=== PATIENT | male | born 1970 | race African-American/Black ===

== ENCOUNTER 2017-04-06 05:15 | Observation (INO) ==
--- NOTE | 2017-04-06 06:09 | Emergency Department Note ---
Regina Black Hilary, am scribing for, and in the presence of, Hubert Smith MD 06: 09. Sarah Black James D, MD, personally performed the services described in this documentation, ascribed by Rebecca Tapia in my presence, and it is both accurate and complete . Arrival - Arrival Chief Complaint: Chest Pain Stated Complaint: chest pains ,sob ED Nursing Triage Note: patient c/o right sided cp and shortness of breath for 3 days but got worse this am when he got up. deies n/v. Mode of Arrival: Ambulatory Limitations: No Limitations Source: Patient, RN Notes Reviewed Time Seen by Provider: 04/06/17 06:01 - History of Present Illness HPI Narrative: Pt is a 46 y/o male presenting to the ED with c/o right sided chest pain and SOB which onset approx 2129 but got worse this AM. Pt confirms SOB, and chest pain when breathing but denies nausea, vomiting or cough. No other complaints or problems stated in the ED. Onset (ago): day(s) Allergies/Adverse Reactions: Allergies Allergy/AdvReac Type Severity Reaction Status Date / Time [place] Allergy HIVES Verified 04/06/17 05:25 levofloxacin Allergy ITCHING Verified 04/06/17 05:25 Review of System - Review of System 12 point system: reviewed and no additional remarkable complaints except as stated - Review of System Constitutional: Absent: fever Respiratory: Present: respiratory distress (SOB). Absent: cough Cardiovascular: Present: chest pain, dyspnea on exertion Gastrointestinal: Absent: nausea, vomiting Medical,Surgical,& Family Hx - Social History Smoking Status: Never smoker Frequency of Alcohol Use: None Type of Drug Use: None Exam Physical Examination: GENERAL: This is a well-nourished, well-developed in no apparent distress. VITAL SIGNS: Temperature: 97.8 Pulse: 77 Respiratory: 20 Blood Pressure: 212/ 113 O2Sat: 99 HEENT: Head is normocephalic and atraumatic. Pupils are equally round and reactive to light. Extraocular movement are intact. Oropharynx is benign with moist mucous membranes. NECK: Neck is soft and supple without tenderness. There are no masses. There is no lymphadenopathy. LUNGS: Lungs are clear to auscultation bilaterally. Chest rises symmetrically. There is minimal anterior chest wall tenderness. CV: Heart is regular rate and rhythm without murmurs, rubs, or gallops. ABDOMEN: Abdomen is soft, non-tender to palpation. There are no abnormal masses palpated. There is no organomegaly. Bowel sounds are present and active. SKIN: Skin is warm and dry. No rash. EXTREMITIES: Patient has full range of motion without tenderness. There is no pedal edema. NEUROLOGIC: Awake, alert, and oriented x4. Cranial nerves II through XII are grossly intact. There are no motorsensory deficits. PSYCHIATRIC: Normal affect. Normal mood. Vital Signs: Vital Signs Temperature 97.8 F 04/06/17 05:18 Pulse Rate 77 04/06/17 05:18 Respiratory Rate 20 04/06/17 05:32 Blood Pressure 212/113 04/06/17 05:18 O2 Sat by Pulse Oximetry 99 04/06/17 05:18 Course - Consultations Consultation #1: Discussed with hospitalist. Patient will be admitted to their service. Time: 07:13 Results - Labs CBC & BMP: 04/06/17 06:22 04/06/17 05:39 Lab Results: I have reviewed the patients labs Labs: Laboratory Tests 04/06/17 04/06/17 06:22 06:22 WBC 6.1 RBC 5.16 Hgb 14.6 Hct 44.2 MCV 85.7 L MPV 9.4 L Circ Anticoag PTT 56.3 H Laboratory Tests 04/06/17 04/06/17 05:39 05:39 Sodium 140 Potassium 3.9 Chloride 106 Carbon Dioxide 28 Total Bilirubin 1.40 H Troponin I < 0.015 - EKG EKG results: interpreted by ERMD - Impressions EKG: Normal sinus rhythm with a rate of 72, anterolateral ischemia, normal axis. Disposition Clinical Impression: Chest pain, Essential hypertension Case discussed with: patient Disposition: Still a Patient Condition: Stable
[2017-04-06] MEDS ORDERED: MORPHINE 2 MG/1 ML SYRINGE IV PRN ×2 (06:16→08:05)
[2017-04-06] MEDS ORDERED: ENOXAPARIN 100 MG/ML SYRINGE SUBCUT STA (06:16)
[2017-04-06] MEDS ORDERED: ONDANSETRON 4 MG/2 ML VIAL IV PRN ×2 (06:16→09:43)
[2017-04-06] MEDS ORDERED: ASPIRIN 325 MG TABLET PO STA (06:16)
[2017-04-06 06:26] LABS: Basophils % 0.3 % (0.0-0.8); Eosinophils # 0.3 10*3/uL (0.0-0.87); Eosinophils % 5.4 % (0.00-10.9); Hematocrit 44.2 VOL% (42.0-52.0); Hemoglobin 14.6 GM/DL (14.0-18.0); Immature Granulocytes % 0.5 %; Immature Granulocytes Absolute 0.03 #; Lymphocytes % 32.1 % (21.2-54.2); Mean Corpuscular Hemoglobin 28 PG (27-34); Mean Corpuscular Volume 85.7 FL (87-102); Mean Platelet Volume 9.4 FL (9.6-12.0); Monocytes # 0.4 10*3/uL (0.11-0.8); Monocytes % 6.4 % (1.7-12.7); Neutrophils # 3.4 10*3/uL (1.4-7.4); Neutrophils % 55.3 % (38.7-73.9); Platelet Count 268 T/CUMM (130-400); Red Blood Count 5.16 MC/CUMM (3.8-5.5); Red Cell Distribution Width 12.1 % (9.3-17.3); White Blood Count 6.1 T/CUMM (4-12)
[2017-04-06] MEDS ORDERED: ENOXAPARIN 100 MG/ML SYRINGE SUBCUT ONE (06:26)
[2017-04-06] MEDS ORDERED: ASPIRIN 325 MG TABLET ONE (06:27)
[2017-04-06] MEDS ORDERED: MORPHINE 2 MG/1 ML SYRINGE ONE (06:27)
[2017-04-06] MEDS ORDERED: ONDANSETRON 4 MG/2 ML VIAL ONE (06:27)
[2017-04-06] MEDS ORDERED: METOPROLOL TARTRATE 5 MG/5 ML VIAL IV STA (06:29)
[2017-04-06 06:37] LABS: Partial Thromboplastin Time 56.3 SECS (0-40)
--- NOTE | 2017-04-06 06:38 | EKG Report ---
Stationary ECG Study 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
[2017-04-06 06:46] LABS: Albumin 3.8 G/DL (3.4-5.0); Bilirubin,Total 1.4 MG/DL (0.2-1.0); Calcium 8.6 MG/DL (8.5-10.1); Osmolality,Calculated 277.4 MOS/KG (273-304); Potassium 3.9 MMOL/L (3.5-5.1); Total Protein 7.1 G/DL (6.4-8.3)
[2017-04-06] MEDS ORDERED: METOPROLOL TARTRATE 5 MG/5 ML VIAL IV ONE (07:00)
[2017-04-06] MEDS ORDERED: ACETAMINOPHEN 325 MG TABLET PO PRN (08:05)
[2017-04-06] MEDS ORDERED: diphenhydrAMINE CAP 25 MG CAPSULE PO PRN (08:05)
[2017-04-06] MEDS ORDERED: guaiFENesin/DM ER 600-30 MG TABLET PO PRN (08:05)
[2017-04-06] MEDS ORDERED: DOCUSATE SODIUM 100 MG CAPSULE PO PRN (08:05)
[2017-04-06] MEDS ORDERED: hydrALAZINE 20 MG/1 ML VIAL IV ONE (08:14)
--- NOTE | 2017-04-06 08:25 | Hospitalist History & Physical ---
Assessment and Plan - Time spent with patient Time spent with patient: Greater than 30 minutes (1) Chest pain Status: Acute Assessment and plan: Mr. Montoya is a very pleasant 46-year-old -[place] male with history of remote hypertension admitted by hospitalist service with chest pain, shortness of breath, malignant hypertension. Patient was given some metoprolol in the ED which brought his pulse rate down but his blood pressure is still elevated. He will receive some hydralazine in the ED and if this does not come down then he will need CCU admission on Cardizem drip. Otherwise patient can go to telemetry. Will get serial EKG and serial troponins along with a cardiology consult for possible stress test. Dr. Baxter will see and examine the patient and further recommendations to follow. Current Visit: Yes (2) Malignant hypertension Status: Acute Current Visit: Yes History of Present Illness Chief complaint: Chest pain/shortness of breath History of present illness: Mr. Montoya is a 46 year old male with history of remote hypertension presenting to the ED today with a one-day history of chest pain and shortness of breath. Patient states the chest pain started last night and he rated the pain 8/10 with accompanied shortness of breath. Patient states since coming to the ED his pain is decreased to 3/10. Patient states he did not have any nausea, vomiting, diarrhea, headache, abdominal pain, or lower extremity swelling. Patient states the pain did not radiate to the jaw or to his arm or through to the back. Patient states it feels like somebody is sitting on his chest and it is worse when he takes a deep breath. Patient has a family history of hypertension and cancer but no MIs. He does not complain of cough and he has not been exposed to anybody that has been sick recently. Patient is not a smoker or drinker. Patient states he used to take amlodipine for his blood pressure but since he switched to this new job he has not required medication. Upon exam patient is afebrile with pulse rate in the 60s but his blood pressure still running 170/120. He did receive a dose of metoprolol in the ED. His initial troponin is negative as well as remainder of his labs. His EKG is showing a ST/T-wave abnormality with possible anterolateral ischemia. After discussion with ED physician Dr. Smith and admitting hospitalist Dr. Blacklick, it was agreed patient would be admitted to telemetry for further evaluation. Allergies Allergy/AdvReac Type Severity Reaction Status Date / Time [place] Allergy HIVES Verified 04/06/17 05:25 levofloxacin Allergy ITCHING Verified 04/06/17 05:25 Medical,Surgical,& Family Hx - Medical History Cardio: History of: Hypertension Gastrointestinal: History of: GERD - Surgical History Orthopedic Surgeries: Surgical HX of;: Orthopedic Surgery - Family History Family History: Reports;: Family Cancer, Family Hypertension - Social History Smoking Status: Never smoker Frequency of Alcohol Use: None Type of Drug Use: None Marital Status: Lives With:: Spouse Functional capacity: independent ambulation Review of systems: Complete 10 system review of systems was obtained and pertinent positives and negatives per HPI Exam - Constitutional Vitals: Period Temp Pulse Resp BP Sys/Whitten Pulse Ox Last 24 Hr 97.8 F-97.8 F 77-77 20-20 212-212/113-113 99 Exam: Constitutional System: No distress. No tremulousness. Head: Normocephalic, atraumatic. Ears, Nose and Throat System: No evidence of Otitis or Mastoiditis. No epistaxis or discharge Eyes System: Pupils equal, round, and reactive. Extraocular muscles intact. Neck: Supple, without adenopathy, No jugular venous distention. No thyromegaly, neck mass, or prior surgery apparent. Respiratory System: Chest clear to auscultation. Cardiovascular System: Heart with regular rate and rhythm. No murmur. GI System: Abdomen soft, nontender. Normo active bowel sounds present. Musculoskeletal System: limbs with no pedal edema. Full distal pulses. Neurological System: No discernable sensory deficit. No aphasia Psychiatric System: Conversation is rational Results - Labs CBC & BMP: 04/06/17 06:22 04/06/17 05:39 Lab Results: I have reviewed the past 24 hour labs - EKG EKG results: sinus rhythm - Impressions ST and T-wave abnormalities with possible anterolateral ischemia
[2017-04-06] MEDS ORDERED: SODIUM CHLORIDE 0.9% 1,000 ML IV SCH (08:30)
[2017-04-06] MEDS ORDERED: hydrALAZINE 20 MG/1 ML VIAL ONE (08:43)
[2017-04-06] MEDS ORDERED: NITROGLYCERIN 2% OINT 1 INCH/GM PACK TOP STA (09:00)
--- NOTE | 2017-04-06 10:13 | EKG Report ---
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
--- NOTE | 2017-04-06 10:19 | Ultrasound Report ---
Exam: US abdomen limited Date: 04/06/2017 9:26 AM Comparison: None Indication: Right upper quadrant pain, elevated bilirubin Technique:[Multiple transabdominal real-time scans were obtained of the right upper quadrant. Color flow scans obtained. Ultrasound images were captured and stored.] Findings: No definite gallbladder pathology identified. CBD is normal in size measuring 4.7 mm. The liver and right kidney have an unremarkable appearance. The right kidney measures 103 mm in length. The pancreas and aortic bifurcation are obscured by bowel gas. The visualized aorta is normal in size with color flow documented in the IVC. Impression: No definite right upper quadrant pathology identified. The pancreas is obscured by bowel gas. PROCEDURE INTERPRETED AT [facility] DEPARTMENT OF RADIOLOGY Final Report Signed by: Dr. Felicia Chowdary
[2017-04-06] MEDS: ENOXAPARIN 40 MG/0.4 ML SYRINGE SUBCUT SCH (11:17)
[2017-04-06] MEDS: amLODIPine 10 MG TABLET PO SCH (12:06)
[2017-04-06] MEDS: PANTOPRAZOLE 40 MG TABLET PO SCH (12:06)
--- NOTE | 2017-04-06 12:50 | Cardiology Consult Note ---
<Vesta Kingsley E - Last Filed: 04/06/17 12:32> Assessment and Plan - Time spent with patient Time spent with patient: Greater than 30 minutes (1) Sleep disorder Status: Chronic Assessment and plan: See plan of care listed below Current Visit: Yes (2) Chest pain Status: Acute Assessment and plan: See plan of care listed below Current Visit: Yes (3) Malignant hypertension Status: Acute Assessment and plan: See plan of care listed below Current Visit: Yes (4) Obesity (BMI 30.0-34.9) Status: Chronic Assessment and plan: See plan of care listed below Current Visit: Yes History of Present Illness - Data of Consult Patient: new to practice Consult date: 04/06/17 Requesting Physician: Martha Baxter Primary care physician: Zoey Wells - Consult Narrative Reason for consult: chest pain, hypertensive urgency 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 WELLS Mr. Montoya, 46BM, has risk factors significant for: hypertension, obesity, unknown lipid status. He has no prior cardiac history. Mr. Montoya, presented to the emergency department [facility] this morning, after experiencing chest pain which started last evening. The chest discomfort is located in the midsternal area without radiation. This woke him from his sleep last evening as he began to feel an aching in the center of his chest. It is not associated with shortness of breath, nausea or diaphoresis. He found that taking a deep breath seemed to make this worse. He got up and walked around and then eventually went on back to sleep. When he woke this morning, he continued to have chest discomfort and for this reason he felt as if he should be evaluated in the emergency department. He rates the discomfort as an 8 on a scale of 1-10. At this point, he rates it as a 1 on a scale of 1-10. Palpating the lower external area re-creates the discomfort that the pain has improved since admission. He is normally very active and can perform these activities without chest pain, heaviness or tightness. 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 He tells me he does not have to do heavy lifting. His believes he did lift a heavy item on Thursday. Patient's blood pressure was significantly elevated on admission. He had previously been taking Norvasc 5 mg orally daily. He tells me he stopped his medication but monitor his blood pressure routinely and reports systolic blood pressures averaging 120s-130s, diastolic blood pressures averaging 80s-90. He had no adverse effects from taking his amlodipine but when he would check his blood pressure off of the medications his blood pressure was well controlled he failed. First set of cardiac biomarkers is negative. EKG reveals an ST-T wave abnormality in the setting of uncontrolled hypertension. At this point, will continue to follow his cardiac biomarkers. Echocardiogram today. Blood pressure is still significantly high and therefore stress testing is not an option until the blood pressure is better controlled. Conceivably, we can do this outpatient or we could do this during the hospital stay. Will await the results of his echo make additional recommendations accordingly. I am going to go ahead and consult Dr. Olmedo, sleep medicine. Patient snores loudly and hold his breath while sleeping. He has very small oral airway (Mallampati Airway Class III-IV.) Fasting lipid profile today. Also, I will add a d-dimer to his labs this morning. Treat his chest pain with Neurontin, tramadol and acetaminophen. Continue PPI. Reports he previously took omeprazole as needed and not routinely. Total bilirubin is mildly elevated at 1.4. ASSESSMENT/PLAN: 1. HYPERTENSION - adjust medications accordingly during hospital stay. 2. CHEST PAIN - continue to cycle his cardiac biomarkers. We will add medications for musculoskeletal chest pain. Echocardiogram. Patient may benefit from stress testing. Will discuss with Dr. Salazar timing of stress testing. Once blood pressure is better controlled we may schedule this outpatient versus inpatient stress testing. Echocardiogram will provide additional information. PPI. Amylase and lipase 3. UNKNOWN LIPID STATUS - fasting lipid profile now 4. SLEEP DISORDER -consult Dr. Olmedo for sleep disorder concerning for sleep apnea CC: Martha Baxter MD - Home Medications and Allergies Home Medications: Home Medications Medication Instructions Recorded Confirmed Type No Known Home Medications [No 04/06/17 04/06/17 History Known Home Medications] Allergies/Adverse Reactions: Allergies Allergy/AdvReac Type Severity Reaction Status Date / Time [place] Allergy HIVES Verified 04/06/17 05:25 levofloxacin Allergy ITCHING Verified 04/06/17 05:25 Review of systems: REVIEW OF SYSTEMS: - Constitutional Constitutional: Absent: syncope, anorexia, night sweats - EENT Eyes: Absent: blurry vision, loss of vision, diplopia Ears: Absent: decreased hearing, ear pain, ear discharge - Cardiovascular Cardiovascular: Present: Mild chest pain with deep breath and to palpation. Denies dyspnea on exertion, edema, palpitations. Absent: claudication - Respiratory Respiratory: Denies: WEST, denies cough. Severe snoring and holding of breath when sleeping. Absent: wheezing, hemoptysis, change in phlegm color. - Gastrointestinal Gastrointestinal: Denies: constipation. Absent: abdominal pain, hematemesis, hematochezia, melena, change in bowel habits, nausea - Genitourinary Genitourinary: Absent: difficulty urinating, dysuria, urinary hesitancy, flank pain - Musculoskeletal Musculoskeletal: Present: back pain Absent: joint swelling, muscle cramps, muscle weakness - Neurological Neurological: Present: normal gait without frequent falls. Absent: dizziness, hemiparesis - Psychiatric Psychiatric: Absent: anxiety, depression, difficulty concentrating - Endocrine Endocrine: Absent: fatigue. Absent: cold intolerance, heat intolerance, polyuria, polyphagia, polydipsia - Hematologic/Lymphatic Hematologic/Lymphatic: Present: easy bruising. Absent: easy bleeding -Integumentary Integumentary: Absent: lesions, rashes, skin breakdown Medical,Surgical,& Family Hx - Medical History Cardio: History of: Hypertension No history of: Cardiac Dysrhythmia, CAD, [place] Psychological: No history of: Depression Endocrine: No history of: Diabetes Mellitus (NIDDM), Dyslipidemia Gastrointestinal: History of: GERD - Surgical History Orthopedic Surgeries: Surgical HX of;: Orthopedic Surgery (left shoulder) - Family History Family History: Reports;: Family Cancer, Family Hypertension - Social History Smoking Status: Never smoker Have you smoked in the last 12 months: No Frequency of Alcohol Use: None Type of Drug Use: None Marital Status: Lives With:: Spouse Functional capacity: independent ambulation Physical Examination Vital Signs Temp Pulse Resp BP Pulse Ox 97.8 F 77 20 212/113 99 04/06/17 05:18 04/06/17 05:18 04/06/17 05:18 04/06/17 05:18 04/06/17 05:18 General: [Appears well with no apparent distress.] [Pleasant and cooperative. ] [Appears comfortable.] HEENT: [PERRL, normocephalic, atraumatic. Mucous membranes moist. No jaundice noted. Conjunctiva moist and clear, sclerae anicteric]< Mallampati Airway Class III-IV. Neck: Difficult to assess for JVD due to habitus. No thyromegaly or lymphadenopathy noted. No carotid bruit appreciated Cardiac: [Regular rate and rhythm.] [No obvious murmur, rub or gallop.] Midsternal chest area tender to palpation Lungs: [Clear to auscultation without accessory muscle use to assist the respiratory pattern.] Not requiring oxygen Abdomen: Soft, bowel sounds normoactive. Nontender and nondistended. No abdominal bruit or thrill noted. No masses noted. Musculoskeletal: No fluid collection. Decreased range of motion is noted. Extremities: No clubbing, cyanosis noted. [ No edema noted.] Upper extremity pulses 2+. Lower extremity pulses 2+. Capillary refill less than 3 seconds. Skin: No unusual lesions or rashes. No skin breakdown appreciated. Neuro: Awake, alert and oriented 3. Moves all extremities well without hemiparesis or paralysis. No essential tremor is appreciated. Result/EKG - Labs CBC & BMP: 04/06/17 06:22 04/06/17 05:39 Lab Results: I have reviewed the past 24 hour labs - Diagnostic Findings Procedure: Chest x-ray: report reviewed by me - EKG EKG results: interpreted by me EKG shows: sinus rhythm <Emerson Salazar - Last Filed: 04/06/17 14:16> History of Present Illness - Consult Narrative History of present illness: Mr. Montoya is a 46 year old male who by my evaluation has fairly typical costochondritis. He does admit to lifting something heavy in that likely is what has caused his episode of chest discomfort. He has significant hypertension which is poorly controlled and our plan is going to be to get his blood pressure under control. His EKG is mildly abnormal with negative isoenzymes I think the appropriate thing to do would be to have him undergo stress testing inpatient tomorrow morning. That will allow us to get his blood pressures under control. CC: Martha Baxter MD Physical Examination Vital Signs Temp Pulse Resp BP Pulse Ox 97.8 F 77 20 212/113 99 04/06/17 05:18 04/06/17 05:18 04/06/17 05:18 04/06/17 05:18 04/06/17 05:18 Result/EKG - Labs CBC & BMP: 04/06/17 06:22 04/06/17 05:39 Labs: Laboratory Results - last 24 hr 04/06/17 04/06/17 04/06/17 12:37 12:55 12:55 D-Dimer, Quantitative Total Creatine Kinase 181 CK-MB (CK-2) 2.3 Troponin I < 0.015 < 0.015 Amylase 61 Lipase 148.0 Free T4 1.10 TSH 3rd Generation 1.250 04/06/17 13:23 D-Dimer, Quantitative <= 0.5 Total Creatine Kinase CK-MB (CK-2) Troponin I Amylase Lipase Free T4 TSH 3rd Generation
--- NOTE | 2017-04-06 13:06 | EKG Report ---
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
[2017-04-06 13:18] LABS: Risk Ratio 3.44; VLDL CHOLESTEROL 20.4 MG/DL
[2017-04-06] MEDS: traMADol 50 MG TABLET PO SCH ×2 (14:05→21:56)
[2017-04-06] MEDS: GABAPENTIN 100 MG CAPSULE PO SCH ×3 (14:05→21:56)
[2017-04-06 14:07] LABS: Troponin I Only < 0.015 NG/ML (0.00-0.045)
[2017-04-06 14:12] LABS: Free T4 (Free Thyroxine) 1.1 NG/DL (0.76-1.46); Thyroid Stimulating Hormone 1.25 uIU/ml (0.358-3.74)
[2017-04-06 14:50] LABS: Apearance,Urine CLEAR (Clear); Bilirubin,Urine Negative (Negative); Blood, Urine Negative (Negative); Glucose,Urine (UA) Negative (Negative); Ketones,Urine Negative (Negative); Nitrite,Urine Negative (Negative); Protein,Urine Negative; RBC,Urine <1 /HPF (0-4); Squamous Epithelial Cell,Urine Occasional /HPF (0-10); Urine Color Straw (Yellow); Urine Specific Gravity 1.004 (1.001-1.035); Urine Urobilinogen < 2.0 EU/DL (0.2-1.0); WBC,Urine <1 /HPF (0-6)
[2017-04-06 15:01] LABS: Barbiturates Screen,Urine Negative (Negative); Benzodiazepines Screen,Urine Negative (Negative); Cannabinoid Screen,Urine Negative (Negative); Opiate Screen,Urine Negative (Negative); Phencyclidine Screen,Urine Negative (Negative)
--- NOTE | 2017-04-06 16:12 | Sleep Medicine Consult ---
Assessment and Plan (1) Sleep disorder Status: Chronic Assessment and plan: This patient does have symptoms concerning for sleep apnea. We will schedule him for outpatient polysomnography. Thank you for this consult and the opportunity to participate in his care. Current Visit: Yes (2) Essential hypertension Status: Acute Assessment and plan: The prevalence rate for obstructive sleep apnea patients with hypertension is 35 %. That rate can be as high as 80% in patients who require 4 or more medications for blood pressure control. Current Visit: Yes History of Present Illness Chief complaint: Sleep apnea History of present illness: Mr. Montoya is a 46 year old male admitted with chest pain. During the course of his evaluation, it was noted that he has a history of snoring. His does describe his snoring is loud and intermittent with pauses. He does awaken a couple of times a night. He usually retires around midnight and awakens each day at 530. He does have some symptoms of fatigue and sleepiness during the day and particularly the evening. If he drives for any period of time in the evening, he will fight sleepiness. He does not have any issues with restlessness of his legs or leg jerks. He does have a history of hypertension. Home Medications Medication Instructions Recorded Confirmed Type No Known Home Medications [No 04/06/17 04/06/17 History Known Home Medications] Allergies Allergy/AdvReac Type Severity Reaction Status Date / Time [place] Allergy HIVES Verified 04/06/17 05:25 levofloxacin Allergy ITCHING Verified 04/06/17 05:25 Review of systems: Otherwise unremarkable from a sleep standpoint. Exam ([place]) H&P - Constitutional Vitals: Period Temp Pulse Resp BP Sys/Whitten Pulse Ox Last 24 Hr 97.4 F-98.2 F 61-731 16-18 169-175/99-108 97-100 Exam: He is alert and responsive in no acute distress. Pupils equal round reactive to light and accommodation. Extraocular movements intact. Oropharynx with a class III Mallampati exam. Neck is large supple without adenopathy or thyromegaly. No supraclavicular adenopathy is noted. Chest with symmetrical breath sounds without focal wheeze, rhonchi, or rales. Cardiac exam reveals a regular rhythm without murmur or gallop. Abdomen soft nontender without palpable hepatosplenomegaly or mass. Extremities are without clubbing, cyanosis , or edema. Neurologically, he is grossly intact. He moves all extremities with good strength. Medical,Surgical,& Family Hx - Medical History Cardio: History of: Hypertension No history of: Cardiac Dysrhythmia, CAD, [place] Psychological: No history of: Depression Endocrine: No history of: Diabetes Mellitus (NIDDM), Dyslipidemia Gastrointestinal: History of: GERD - Surgical History Orthopedic Surgeries: Surgical HX of;: Orthopedic Surgery (left shoulder) - Family History Family History: Reports;: Family Cancer, Family Hypertension - Social History Smoking Status: Never smoker Frequency of Alcohol Use: None Type of Drug Use: None Marital Status: Lives With:: Spouse Results - Labs CBC & BMP: 04/06/17 06:22 04/06/17 05:39 Lab Results: I have reviewed the past 24 hour labs Labs: TSH is within normal limits
--- NOTE | 2017-04-06 16:50 | ECHO Report ---
Daniel Montoya Exam Date: 04/06/2017 14:34 Referring Physician: Technologist: Anitra Neil Age: 46 Ht (in): 71 Wt (lb): 245 Gender: M Exam Location: [facility] [place] Echo Indications: obesity, sleep disorder, chest pain, HTN BP: 175 / 99 HR: 61 Rhythm: Sinus Technical Quality: Fair IMPRESSIONS Moderate concentric left ventricular hypertrophy with diastolic dysfunction. Left ventricular ejection fraction is estimated at 55-60 %. Normal right ventricular size. Normal right atrial size. Normal left atrial size. Mild mitral valve sclerosis. Mild mitral valve regurgitation. Aortic valve sclerosis without stenosis or regurgitation. Morphologically normal tricuspid valve. Mild tricuspid valve regurgitation. Tricuspid regurgitation velocities suggest a PAP of 19.4 mmHg + RAP. Morphologically normal pulmonic valve. Trace pulmonary valve regurgitation. No thickening/calcification of the pericardium. Normal size aortic root and proximal ascending aorta. MEASUREMENTS (Male / Female) Normal Values 2D ECHO LV Diastolic Diameter PLAX 4.4 cm 4.2 - 5.9 / 3.9 - 5.3 cm LV Systolic Diameter PLAX 2.6 cm LV Fractional Shortening PLAX 41.0 % IVS Diastolic Thickness 1.4 cm 0.6 - 1.0 / 0.6 - 0.9 cm LVPW Diastolic Thickness 1.4 cm 0.6 - 1.0 / 0.6 - 0.9 cm RV Internal Dim ED PLAX 2.3 cm Aortic Root Diameter 2.7 cm LA Systolic Diameter LX 3.4 cm 3.0 - 4.0 / 2.7 - 3.8 cm DOPPLER TR Peak Velocity 220.0 cm/s TR Peak Gradient 19.4 mmHg FINDINGS Left Ventricle Moderate concentric left ventricular hypertrophy with diastolic dysfunction. Left ventricular ejection fraction is estimated at 55-60 %. Right Ventricle Normal right ventricular size. Right Atrium Normal right atrial size. Left Atrium Normal left atrial size. Mitral Valve Mild mitral valve sclerosis. Mild mitral valve regurgitation. Aortic Valve Aortic valve sclerosis without stenosis or regurgitation. Tricuspid Valve Morphologically normal tricuspid valve. Mild tricuspid valve regurgitation. Tricuspid regurgitation velocities suggest a PAP of 19.4 mmHg + RAP. Pulmonic Valve Morphologically normal pulmonic valve. Trace pulmonary valve regurgitation. Pericardium No thickening/calcification of the pericardium. Aorta Normal size aortic root and proximal ascending aorta. Emerson Salazar MD (Electronically Signed) Final Date: 06 Apr 2017 16:49
--- NOTE | 2017-04-06 16:59 | Event Note ---
Patient underwent nuclear stress testing without difficulty. Achieved THR easily. Good exercise tolerance. No chest pain with activity. Mild WEST. T wave deepining inferolaterally. Rare unifcoal PVC noted. Blood pressure responded appropriately. Now, to nuclear medicine scan for completion of final scan. Dr. Salazar to read, interpret and advise.
[2017-04-06] MEDS ORDERED: CARVEDILOL 12.5 MG TABLET PO SCH (21:00)
[2017-04-06] MEDS: METOPROLOL TARTRATE 50 MG TABLET PO SCH (21:56)
[2017-04-06 21:59] LABS: Troponin I Only < 0.015 NG/ML (0.00-0.045)
[2017-04-07 05:30] LABS: Basophils % 0.3 % (0.0-0.8); Eosinophils # 0.4 10*3/uL (0.0-0.87); Eosinophils % 5.4 % (0.00-10.9); Hematocrit 44.2 VOL% (42.0-52.0); Hemoglobin 14.5 GM/DL (14.0-18.0); Immature Granulocytes % 0.1 %; Immature Granulocytes Absolute 0.01 #; Lymphocytes # 1.7 10*3/uL (1.4-4.0); Lymphocytes % 22.3 % (21.2-54.2); Mean Corpuscular HGB Conc 32.8 GM/DL (32-36); Mean Corpuscular Hemoglobin 28 PG (27-34); Mean Corpuscular Volume 85.8 FL (87-102); Mean Platelet Volume 9.3 FL (9.6-12.0); Monocytes # 0.5 10*3/uL (0.11-0.8); Monocytes % 6.3 % (1.7-12.7); Neutrophils # 5.1 10*3/uL (1.4-7.4); Neutrophils % 65.6 % (38.7-73.9); Platelet Count 277 T/CUMM (130-400); Red Blood Count 5.15 MC/CUMM (3.8-5.5); White Blood Count 7.7 T/CUMM (4-12)
[2017-04-07 05:59] LABS: Calcium 8.3 MG/DL (8.5-10.1); Magnesium 2.3 MG/DL (1.8-2.4); Osmolality,Calculated 279.4 MOS/KG (273-304); Potassium 3.9 MMOL/L (3.5-5.1)
[2017-04-07 06:04] LABS: Troponin I Only < 0.015 NG/ML (0.00-0.045)
[2017-04-07] MEDS: PANTOPRAZOLE 40 MG TABLET PO SCH (09:42)
[2017-04-07] MEDS: GABAPENTIN 100 MG CAPSULE PO SCH (09:42)
[2017-04-07] MEDS: ENOXAPARIN 40 MG/0.4 ML SYRINGE SUBCUT SCH (09:43)
[2017-04-07] MEDS: amLODIPine 10 MG TABLET PO SCH (09:43)
[2017-04-07] MEDS: METOPROLOL TARTRATE 50 MG TABLET PO SCH (09:43)
[2017-04-07] MEDS: traMADol 50 MG TABLET PO SCH (09:43)
--- NOTE | 2017-04-07 10:44 | Discharge Summary ---
<AndrewsKaylyn Melissa - Last Filed: 04/07/17 10:35> Hospital Course - Hospital Course Hospital Course: 46-year-old -N[place]alese male with history of remote hypertension admitted by hospitalist service on 04/06/2017 with chest pain, shortness of breath and malignant hypertension. Patient was admitted to telemetry and Dr. Salazar from cardiology along with Dr. Olmedo from sleep medicine was consulted. Patient had an echocardiogram that showed moderate concentric left ventricular hypertrophy with diastolic dysfunction with an EF of 55-60%. Abdominal ultrasound was performed due to mildly elevated total bilirubin of 1.4. It showed no definite right upper quadrant pathology and patient is asymptomatic for abdominal pain. His lipid profile was normal. Patient underwent nuclear stress testing without difficulty. He had good exercise tolerance with no chest pain. He was started on some temporary meds for chest wall pain, and there was an issue of maybe esophageal spasm as well. It was recommended patient continue to take his omeprazole on a daily basis instead of as needed. His blood pressure meds have been adjusted. Prescriptions were written Dr. Olmedo also saw the patient and is concerned patient does have some symptoms of sleep apnea. He will be scheduled for outpatient polysomnography. He will also be scheduled for a GI follow-up with a doctor of his choice in 1 month. Patient is feeling much better and ready for discharge. Patient's case was coordinated with Vesta Parikh ACNP for Dr. Salazar, patient and family. Case coordination, chart review and discharge paperwork all took approximately 40 minutes. - Time spent with patient Time with patient DS: Greater than 30 minutes Diagnosis - Discharge Diagnosis (1) Chest pain Status: Resolved (2) Malignant hypertension Status: Resolved (3) Chest wall pain Status: Resolved (4) Esophageal spasm Status: Resolved Specialty Discharge - Follow Up or Referrals Follow up with: [facility] [place] Group] (Patient needs to schedule a follow up appointment with GI doctor who performed upper and lower scopes in past. ) Michelle Olmedo MD [Physician] - 04/16/17 7:15 pm (Outpatient sleep study) Emerson Salazar MD [Physician] - 05/04/17 8:40 am (3-4wks ) Discharge Plan - Discharge Data Disposition: Disch To Home/Self Care Condition at Discharge: Stable Discharge Diet: heart healthy Activity: resume usual activities as tolerated Hygiene: may shower Driving: no restrictions Contact your physician if you experience:: Nausea/Vomiting, Shortness of breath - Discharge Medications New Acetaminophen Tab [Tylenol Tab] 325 mg PO BID #14 tablet Gabapentin Cap/Tab [Neurontin Cap/Tab] 100 mg PO TID #20 capsule Pantoprazole Tab [Protonix Tab] 40 mg PO DAILY #30 tablet traMADol TAB [Ultram] 50 mg PO BID #14 tablet amLODIPine [Norvasc] 5 mg PO DAILY #60 tablet - Follow Up or Referral Follow Up: [facility] [place] Group] (Patient needs to schedule a follow up appointment with GI doctor who performed upper and lower scopes in past. ) Michelle Olmeod MD [Physician] - 04/16/17 7:15 pm (Outpatient sleep study) Emerson Salazar MD [Physician] - 05/04/17 8:40 am (3-4wks ) - Forms/Instructions Forms: Acute Care Work/School Release Instructions: Chest Pain (GEN), Chronic Hypertension (GEN) Exam - Constitutional Vitals: Period Temp Pulse Resp BP Sys/Whitten Pulse Ox Last 24 Hr 98.5 F 66 18 134/78 94 Exam: 46-year-old -N[place]alese male, no acute distress Chest clear CV regular rate and rhythm Abdomen obese nontender Extremities no edema DS: Provider Date of admission: 04/06/17 08:03 Primary care physician: Zoey Michael Attending physician on admission: Martha Baxter MD Consults: 04/06/17 08:12 Consult to Physician [CONS] Routine Comment: chest pain, abn ekg Consulting Provider: Cardiology - [facility] When should Consulting Provider be notified: Now Person Notified: Henry- [facility] Date Notified: 04/06/17 Time Notified: 10:28 04/06/17 12:56 Consult to Sleep Center [CONS] Routine Reason for Sleep Center: Sleep Center Physician Consult Comment: Symptoms concerning for sleep apnea Discharging clinician: MADHU Charles Expected date of discharge: 04/07/17 <Martha Baxter - Last Filed: 04/08/17 08:59> Hospital Course - Hospital Course Hospital Course: I saw and examined Mr stockton and agree with this discharge summary. He is feeling better. His chest pain is resolved other than chest soreness. He will take PPI, see GI and use meds prescribed by cardiology for musculoskeletal chest pain.
[2017-04-07 11:22] VITALS: BP 134/78
--- NOTE | 2017-04-07 14:17 | Nuclear Medicine Report ---
PROCEDURE: EXERCISE CARDIOLITE GATED SPECT PERFUSION STUDY. REFERRING: Martha Baxter MD INITIAL IMPRESSION: 1. A 46-YEAR-OLD MAN WITH HYPERTENSIVE URGENCY 2. ATYPICAL CHEST PAIN. 3. ABNORMAL EKG. FINAL IMPRESSION: Normal exercise Cardiolite gated SPECT perfusion study. I. DESCRIPTION OF PROCEDURE: The patient received 10.0 mCi of Technetium-99m Cardiolite IV and res t images were obtained in the routine manner 20 minutes later. The patient then walked for 10 minut es and 34 seconds on the standard Alexi protocol and achieved a peak heart rate of 150, which is 85% of his predicted maximal heart rate. At peak exercise, 30.0 mCi of Technetium-99m Cardiolite IV wa s injected and stress imaging was obtained in the routine manner 20 minutes later. Serial electroca rdiograms were performed. The initial blood pressure was 134/90, and it was 180/866 immediately pos t exercise. II: RESULTS: The patient had no chest pain or arrhythmias and the test was terminated due to short ness of breath and fatigue. The resting EKG demonstrates normal sinus rhythm with preserved R-wave and diffuse ST depression. With exercise, no diagnostic EKG changes occurred. No arrhythmias. Tomographic imaging demonstrates homogenous uptake of radioisotope in all segments. There is no khanh dence for ischemia or scar. Gated SPECT imaging demonstrates normal wall motion and thickening in a ll segments. The calculated ejection fraction is 59%. A concentric LVH is noted. III: FINAL IMPRESSION: 1. CLINICALLY AND ELECTROGRAPHICALLY NEGATIVE. 2. GOOD WORK CAPACITY. 3. SCINTIGRAPHICALLY NORMAL PERFUSION STUDY. IV: DISPOSITION: The patient should be reassured regarding the lack of any evidence for significant coronary artery disease at this time. He had no chest pain, or diagnostic EKG changes and tomograp hic imaging is normal. In addition, ventricular function is well preserved, ejection fraction of 59 %. He achieved 10.7 METS. This is a low risk scan. Continued medical therapy and risk factor melissa fication recommended. Procedure performed and interpreted at [facility] Department of Radiology. CC: Martha Baxter MD
== END 2017-04-07 12:05 | disposition home or self-care (01) ==
LOC: N.TELES 05:15 → N.ED 05:15 → N.TELES 10:12
PROVIDERS: ADMIT Internal Medicine; ATTEND Internal Medicine

== ENCOUNTER 2018-09-18 18:38 | Inpatient (IN) ==
[2018-09-18] MEDS ORDERED: METOPROLOL TARTRATE 25 MG TABLET PO STA (19:50)
[2018-09-18] MEDS ORDERED: NITROGLYCERIN 2% OINT 1 INCH/GM PACK TOP STA (19:50)
[2018-09-18] MEDS ORDERED: ONDANSETRON 4 MG/2 ML VIAL IV STA (19:50)
[2018-09-18] MEDS ORDERED: ASPIRIN 325 MG TABLET PO STA (19:50)
[2018-09-18 20:17] LABS: Basophils % 0.1 % (0.0-0.8); Eosinophils # 0.1 10*3/uL (0.0-0.87); Eosinophils % 0.8 % (0.00-10.9); Hematocrit 42.2 VOL% (42.0-52.0); Hemoglobin 13.6 GM/DL (14.0-18.0); Immature Granulocytes % 0.3 %; Immature Granulocytes Absolute 0.04 #; Lymphocytes # 1.9 10*3/uL (1.4-4.0); Mean Corpuscular HGB Conc 32.2 GM/DL (32-36); Mean Corpuscular Hemoglobin 28 PG (27-34); Mean Corpuscular Volume 86.1 FL (87-102); Mean Platelet Volume 9.2 FL (9.6-12.0); Monocytes # 0.6 10*3/uL (0.11-0.8); Monocytes % 4.3 % (1.7-12.7); Neutrophils # 10.7 10*3/uL (1.4-7.4); Neutrophils % 80.5 % (38.7-73.9); Platelet Count 281 T/CUMM (130-400); White Blood Count 13.3 T/CUMM (4-12)
[2018-09-18 20:29] LABS: INR 1.1; PT Patient Result 11.1 SECS
[2018-09-18 20:40] LABS: Alanine Aminotransferase 26 U/L (16-61); Albumin 3.7 G/DL (3.4-5.0); Alkaline Phosphatase 82 U/L (45-117); Aspartate Amino Transferase 23 U/L (0-37); Blood Urea Nitrogen 7 MG/DL (7-18); Calcium 8.5 MG/DL (8.5-10.1); Glucose 90 MG/DL (74-106); Osmolality,Calculated 278.3 MOS/KG (273-304); Sodium 141 MMOL/L (136-145); Total Protein 7.2 G/DL (6.4-8.3); Troponin I < 0.015 NG/ML (0.00-0.045)
[2018-09-18] MEDS ORDERED: SODIUM CHLORIDE 0.9% 1,000 ML IV STA (20:48)
[2018-09-18] MEDS ORDERED: METOCLOPRAMIDE 10 MG/2 ML VIAL IV STA (20:48)
[2018-09-18] MEDS ORDERED: PANTOPRAZOLE 40 MG VIAL IV STA (20:48)
[2018-09-18 20:49] LABS: Apearance,Urine CLEAR (Clear); Bilirubin,Urine Negative (Negative); Blood, Urine Negative (Negative); Glucose,Urine (UA) Negative (Negative); Ketones,Urine Negative (Negative); Mucus,Urine Occasional /LPF (Occasional); Nitrite,Urine Negative (Negative); Protein,Urine Negative; Urine Color Yellow (Yellow); Urine Specific Gravity 1.012 (1.001-1.035); WBC,Urine <1 /HPF (0-6)
[2018-09-18 20:58] LABS: Barbiturates Screen,Urine Negative (Negative); Benzodiazepines Screen,Urine Negative (Negative); Cannabinoid Screen,Urine Negative (Negative); Opiate Screen,Urine Negative (Negative); Phencyclidine Screen,Urine Negative (Negative)
[2018-09-18] MEDS ORDERED: ONDANSETRON 4 MG/2 ML VIAL IV PRN (23:47)
[2018-09-19] MEDS: SODIUM CHLORIDE 0.9% 1,000 ML IV SCH ×3 (00:39→17:06)
[2018-09-19] MEDS: ACETAMINOPHEN 325 MG TABLET PO PRN ×2 (00:47→20:49)
[2018-09-19 02:15] LABS: Basophils % 0.2 % (0.0-0.8); Eosinophils # 0.2 10*3/uL (0.0-0.87); Eosinophils % 2.2 % (0.00-10.9); Hematocrit 38.8 VOL% (42.0-52.0); Hemoglobin 12.2 GM/DL (14.0-18.0); Immature Granulocytes % 0.5 %; Immature Granulocytes Absolute 0.05 #; Lymphocytes % 18.8 % (21.2-54.2); Mean Corpuscular HGB Conc 31.4 GM/DL (32-36); Mean Corpuscular Hemoglobin 28 PG (27-34); Mean Corpuscular Volume 87.6 FL (87-102); Mean Platelet Volume 8.9 FL (9.6-12.0); Monocytes # 0.5 10*3/uL (0.11-0.8); Monocytes % 4.6 % (1.7-12.7); Neutrophils % 73.7 % (38.7-73.9); Platelet Count 249 T/CUMM (130-400); Red Blood Count 4.43 MC/CUMM (3.8-5.5); Red Cell Distribution Width 11.9 % (9.3-17.3); White Blood Count 10.8 T/CUMM (4-12)
[2018-09-19 02:57] LABS: Calcium 7.8 MG/DL (8.5-10.1)
[2018-09-19 03:03] LABS: Albumin 3.1 G/DL (3.4-5.0)
[2018-09-19 03:04] LABS: Troponin I < 0.015 NG/ML (0.00-0.045)
[2018-09-19 03:05] LABS: Risk Ratio 3.27
[2018-09-19 03:06] LABS: Bilirubin,Direct 0.33 MG/DL (0.0-0.20)
[2018-09-19 03:08] LABS: Bilirubin,Indirect 2.2 MG/DL (0.0-1.0); Bilirubin,Total 2.5 MG/DL (0.2-1.0); Total Protein 6.2 G/DL (6.4-8.3)
[2018-09-19 06:26] LABS: Troponin I < 0.015 NG/ML (0.00-0.045)
[2018-09-19] MEDS ORDERED: PANTOPRAZOLE 40 MG TABLET PO SCH (09:00)
[2018-09-19] MEDS: LORATADINE 10 MG TABLET PO SCH (09:14)
[2018-09-19] MEDS: TRIAMTERENE/HCTZ 37.5-25 MG TABLET PO SCH (09:14)
[2018-09-19] MEDS: ENOXAPARIN 40 MG/0.4 ML SYRINGE SUBCUT SCH (09:14)
[2018-09-19 11:53] LABS: Troponin I < 0.015 NG/ML (0.00-0.045)
[2018-09-19] MEDS ORDERED: ACETAMINOPHEN 325 MG/10.15 ML UDCUP PO PRN (13:19)
[2018-09-19] MEDS: DOXYCYCLINE HYCLATE 100 MG CAPSULE PO SCH ×2 (14:22→20:49)
[2018-09-19] MEDS ORDERED: ASPIRIN CHEW 81 MG TABLET PO ONE (22:00)
[2018-09-19] MEDS: GABAPENTIN 100 MG CAPSULE PO SCH (22:32)
[2018-09-19] MEDS: traMADol 50 MG TABLET PO SCH (22:33)
[2018-09-19] MEDS: ACETAMINOPHEN 325 MG TABLET PO SCH (22:33)
[2018-09-20] MEDS: SODIUM CHLORIDE 0.9% 1,000 ML IV SCH ×2 (04:40→07:04)
[2018-09-20] MEDS ORDERED: MAGNESIUM SULF RIDER 2 GM in PREMIX 1 EACH IV PRN (08:24)
[2018-09-20] MEDS ORDERED: DIAZEPAM 5 MG TABLET PO ONE (08:24)
[2018-09-20] MEDS ORDERED: diphenhydrAMINE CAP 25 MG CAPSULE PO ONE (08:24)
[2018-09-20] MEDS ORDERED: POTASSIUM CHLORIDE RIDER 10 MEQ in PREMIX 1 EACH IV PRN (08:24)
[2018-09-20] MEDS: TRIAMTERENE/HCTZ 37.5-25 MG TABLET PO SCH (08:48)
[2018-09-20] MEDS: ENOXAPARIN 40 MG/0.4 ML SYRINGE SUBCUT SCH (08:48)
[2018-09-20] MEDS: GABAPENTIN 100 MG CAPSULE PO SCH ×3 (08:53→16:04)
[2018-09-20] MEDS: traMADol 50 MG TABLET PO SCH (08:54)
[2018-09-20] MEDS: ACETAMINOPHEN 325 MG TABLET PO SCH (08:54)
[2018-09-20] MEDS ORDERED: ASPIRIN CHEW 81 MG TABLET PO SCH (09:00)
[2018-09-20] MEDS ORDERED: PANTOPRAZOLE 20 MG TABLET PO SCH (09:00)
[2018-09-20] MEDS ORDERED: LIDOCAINE 1% 20 ML VIAL ONE (10:09)
[2018-09-20] MEDS ORDERED: HEPARIN/NACL 0.9% 2 UNITS/ML 1,000 ML IV ONE (10:09)
[2018-09-20] MEDS ORDERED: MIDAZOLAM 2 MG/2 ML VIAL ONE (10:24)
[2018-09-20] MEDS ORDERED: NITROGLYCERIN DRIP 50 MG/250 ML BOTTLE IV ONE (10:24)
[2018-09-20] MEDS ORDERED: fentaNYL 100 MCG/2 ML VIAL ONE (10:24)
[2018-09-20] MEDS ORDERED: VERAPAMIL 5 MG/2 ML VIAL ONE (10:24)
[2018-09-20] MEDS: LORATADINE 10 MG TABLET PO SCH (12:37)
[2018-09-20] MEDS: DOXYCYCLINE HYCLATE 100 MG CAPSULE PO SCH (12:37)
[2018-09-20 16:06] VITALS: BP 172/89
== END 2018-09-20 18:50 | disposition home or self-care (01) | DRG 287 ==
LOC: N.ED 18:38 → SUATTDRO 23:19 → N.EDINP 23:19 → N.TELEN 23:38
PROVIDERS: ADMIT Hospitalist; ATTEND Internal Medicine
PROC: CLCCHCL (ICD-10-PCS; 2018-09-20 11:15)

== ENCOUNTER 2020-04-23 21:11 | Observation (INO) ==
[2020-04-23 21:37] LABS: Basophils % 0.2 % (0.0-0.8); Eosinophils # 0.4 10*3/uL (0.0-0.87); Hematocrit 44.9 VOL% (42.0-52.0); Hemoglobin 14.5 GM/DL (14.0-18.0); Immature Granulocytes % 0.6 %; Immature Granulocytes Absolute 0.05 #; Lymphocytes # 2.7 10*3/uL (1.4-4.0); Lymphocytes % 30.6 % (21.2-54.2); Mean Corpuscular HGB Conc 32.3 GM/DL (32-36); Mean Corpuscular Volume 85.5 FL (87-102); Mean Platelet Volume 8.8 FL (9.6-12.0); Monocytes % 7.5 % (1.7-12.7); Neutrophils % 57.1 % (38.7-73.9); Platelet Count 296 T/CUMM (130-400); Red Blood Count 5.25 MC/CUMM (3.8-5.5); Red Cell Distribution Width 12.1 % (9.3-17.3); White Blood Count 8.9 T/CUMM (4-12)
[2020-04-23 22:03] LABS: Albumin 3.6 G/DL (3.4-5.0); Bilirubin,Total 0.7 MG/DL (0.2-1.0); Calcium 9.3 MG/DL (8.5-10.1); Osmolality,Calculated 271.8 MOS/KG (273-304); Total Protein 7.8 G/DL (6.4-8.3)
[2020-04-23] MEDS ORDERED: ASPIRIN 325 MG TABLET PO STA (22:36)
[2020-04-23] MEDS: NITROGLYCERIN SL 0.4 MG TABLET SL PRN ×3 (22:50→23:06)
[2020-04-24] MEDS ORDERED: GLUCAGON 1 MG VIAL IM PRN (00:07)
[2020-04-24] MEDS ORDERED: DEXTROSE 50% 25 GM/50 ML SYRINGE IV PRN (00:07)
[2020-04-24] MEDS ORDERED: ACETAMINOPHEN 325 MG TABLET PO PRN (00:07)
[2020-04-24] MEDS ORDERED: ONDANSETRON 4 MG/2 ML VIAL IV PRN (00:07)
[2020-04-24] MEDS ORDERED: DEXTROSE 10% 250 ML BAG IV PRN (00:11)
[2020-04-24] MEDS ORDERED: POTASSIUM CHLORIDE 20 MEQ TABLET PO PRN (00:11)
[2020-04-24] MEDS ORDERED: ENOXAPARIN 40 MG/0.4 ML SYRINGE SUBCUT SCH (00:30)
[2020-04-24] MEDS: NITROGLYCERIN 2% OINT 1 INCH/GM PACK TOP SCH ×2 (06:18→12:09)
[2020-04-24] MEDS ORDERED: PANTOPRAZOLE 40 MG TABLET PO SCH (09:00)
[2020-04-24] MEDS ORDERED: ASPIRIN EC 325 MG TABLET PO SCH (09:00)
[2020-04-24 09:08] LABS: Risk Ratio 4.59; VLDL CHOLESTEROL 27.4 MG/DL
[2020-04-24] MEDS ORDERED: TRIAMTERENE/HCTZ 37.5-25 MG TABLET PO SCH (10:00)
[2020-04-24 13:11] LABS: Barbiturates Screen,Urine Negative (Negative); Benzodiazepines Screen,Urine Negative (Negative); Cannabinoid Screen,Urine Negative (Negative); Opiate Screen,Urine Negative (Negative); Phencyclidine Screen,Urine Negative (Negative)
[2020-04-24 16:47] VITALS: BP 116/78
== END 2020-04-24 18:18 | disposition home or self-care (01) ==
LOC: N.ED 21:11 → N.EDINP 21:11 → N.4E 04-24 02:30
PROVIDERS: ADMIT Family Medicine; ATTEND Family Medicine